=== PATIENT | female | born 1980 | race Caucasian/White ===

== ENCOUNTER 2017-03-17 04:55 | Inpatient (IN) ==
[2017-03-17] MEDS ORDERED: miSOPROStol 100 MCG TABLET PO STA (05:59)
[2017-03-17 06:09] LABS: Basophils % 0.3 %; Eosinophils # 0.1 K/mcL (0.0-0.6); Eosinophils % 0.8 %; Hematocrit 31.9 % (35.3-44.9); Immature Granulocytes % 0.6 % (0-4); Lymphocytes % 21.5 %; Mean Corpuscular HGB Conc 31.3 g/dL (31.6-35.5); Mean Corpuscular Hemoglobin 25.9 pg (28.0-33.3); Mean Corpuscular Volume 82.6 fL (83.0-100.0); Mean Platelet Volume 10.4 fL (9.4-12.4); Monocytes # 0.6 K/mcL (0.0-1.3); Monocytes % 6.6 %; Neutrophils # 6.5 K/mcL (1.6-8.9); Platelet Count 323 K/mcL (140-400); Red Blood Count 3.86 M/mcL (3.82-4.97); Segmented Neutrophils % 70.2 %
[2017-03-17 06:15] LABS: Alanine Aminotransferase 13 Units/L (0-55); Aspartate Amino Transferase 12 Units/L (5-34); BUN/Creatinine Ratio 17 (6-26); Blood Urea Nitrogen 9 mg/dL (7-20); Lactate Dehydrogenase 198 Units/L (159-327); Uric Acid 3.2 mg/dL (2.6-6.0); eGFR For African Americans > 60 (> 60); eGFR For Non-African Americans > 60 (> 60)
--- NOTE | 2017-03-17 07:06 | OB/GYN History & Physical ---
Date of Encounter: 03/17/17 Time of Encounter: 06:48 Assessment and Plan (1) 39 weeks gestation of Current visit: Yes Status: Acute (2) Polyhydramnios affecting in third trimester Current visit: Yes Status: Acute Patient will be admitted for induction of labor. - IV fluids. - Cytotec. - Epidural consult. - Nubain. History of Present Illness Chief complaint: Induction of labor HPI: Ms. Harris is a 37 year old female at 39 0/7 weeks gestation with complicated by polyhydramnios (DAMI 24.3), obesity, AMA status, and late care that presents for induction of labor. She admits to good movement. She denies any vaginal fluid leakage or bleeding. She denies contractions, headaches, vision changes, chest pain, fever, chills, nausea, vomiting, dysuria, or diarrhea. GBS: negative HepBSAg: non-reactive (12/01/16) Rubella Ab: positive Varicella Ab: positive Blood Type: A+ HIV Ag/Ab: non-reactive T. Pallidum Ab: negative All other labs normal Past Med Surg Social Fam HX - Past Medical History Medical history: other Psychiatric history: no psych history - Past Surgical History Surgical History: no surgical history - Social History Smoking Status: Never smoker Alcohol use: none Drug use: none - Family History Father Living Status: Cause of : cancer Obstetrical History - Pregnancies : 3 Para: 2 Term: 2 : 0 Ab's: 0 Livin Medications and Allergies Ferrous Sulfate 324 mg PO 03/17/17 [History] Vit Calc,Iron,Folic [ Vitamins] 1 each PO 03/17/17 [History] 3 Allergy/AdvReac Type Severity Reaction Status Date / Time ketorolac [From Toradol] AdvReac Mild Agitated Verified 03/17/17 05:44 Exam - Vital Signs Vital signs: Initial Vital Signs Temp Pulse Resp BP 98.6 F 107 18 123/72 03/17/17 06:08 03/17/17 06:08 03/17/17 06:08 03/17/17 06:08 - Constitutional Constitutional: well developed, well nourished, no acute distress - Lungs Respiratory exam: CTAB - Cardiovascular Cardiovascular exam: RRR, +S1, +S2 - Abdomen Abdomen: Present: bowel sounds normal, gravid, non tender - Extremities Extremities exam: normal inspection, radial pulses palpable and symmetrical Deep Tendon Reflex Grade: 2+ Normal - Cervix Dilation: 0 (per nurse) - Comments Comments: Pedal pulses intact and symmetrical bilaterally. Results Result Diagrams: 03/17/17 05:34 03/17/17 05:34 Abnormal lab results Hgb 10.0 g/dL (11.5-15.4) L 03/17/17 05:34 Hct 31.9 % (35.3-44.9) L 03/17/17 05:34 MCV 82.6 fL (83.0-100.0) L 03/17/17 05:34 MCH 25.9 pg (28.0-33.3) L 03/17/17 05:34 MCHC 31.3 g/dL (31.6-35.5) L 03/17/17 05:34 RDW 15.0 % (11.5-14.5) H 03/17/17 05:34 Creatinine 0.54 mg/dL (0.57-1.11) L 03/17/17 05:34 All other labs normal.
[2017-03-17] MEDS ORDERED: Naloxone 0.4 MG/ML INJ IVP PRN (07:49)
[2017-03-17] MEDS ORDERED: Metoclopramide 10 MG/2 ML VIAL IVP PRN (07:49)
[2017-03-17] MEDS ORDERED: Ondansetron 4 MG/2 ML VIAL IVP PRN (07:49)
[2017-03-17] MEDS ORDERED: Famotidine 20 MG/2 ML VIAL IVP PRN (07:49)
[2017-03-17 09:29] LABS: Amphetamine Screen,Urine Negative ng/mL (Cutoff=1000); Barbiturate Screen,Urine Negative ng/mL (Cutoff=200); Benzodiazepines Screen,Urine Negative ng/mL (Cutoff=200); Cannabinoid Screen,Urine Negative ng/mL (Cutoff = 50); Cocaine Screen,Urine Negative ng/mL (Cutoff= 300); Opiate Screen,Urine Negative ng/mL (Cutoff=300); Phencyclidine Screen,Urine Negative ng/mL (Cutoff=25)
--- NOTE | 2017-03-17 10:40 | OB Labor Progress Note ---
Date of Encounter: 03/17/17 Time of Encounter: 10:38 Labor Progress Note - Subjective Subjective: Patient resting between contractions. Currently rates them a 7 of 10. Patient plans an epidural for pain management. - Cervix Cervix: 1/60/-2 - Heart Tones Heart Tones: 140 bpm, moderate variability, + 15x15 accels, no decels. Category I tracing. - Almira Almira: q 2-3 minutes. - Interventions Interventions: SVE Meza balloon placed and filled 30 mL of Sterile Water. Patient tolerated well. - Plan Plan: Continue labor management Pt encouraged to be out of bed and on birthing ball.
[2017-03-17] MEDS ORDERED: Oxytocin 20 units/ LR 1000 mL 20 UNIT/1,000 ML BAG IVC SCH ×2 (11:30→23:07)
[2017-03-17] MEDS: Ringers Solution, Lactated 1,000 ML IVC SCH ×2 (11:45→13:12)
[2017-03-17] MEDS ORDERED: Epidural Premix (fent/bupiv) 110 ML EP SCH (12:15)
--- NOTE | 2017-03-17 12:43 | Anesthesia Evaluation PreOp ---
Date of Encounter: 03/17/17 Time of Encounter: 12:41 - Past History Planned Operation: QUAN Cardiac History: Denies any Significant Hx Pulmonary History: Denies Any Significant HX SERVICE EMPLOYEE History: Denies Any Significant HX Other Medical History: Denies Any Significant HX Anesthesia History: No Prior Anesthetic Complications Alcohol Use: none Drug use: none Medications and Allergies Ferrous Sulfate 324 mg PO 03/17/17 [History] Vit Calc,Iron,Folic [ Vitamins] 1 each PO 03/17/17 [History] 3 Allergy/AdvReac Type Severity Reaction Status Date / Time ketorolac [From Toradol] AdvReac Mild Agitated Verified 03/17/17 05:44 - Meds/Allergy Pre-op Review Medications Reviewed: Yes Allergies Reviewed: Yes Beta Blockers on Current Med List: No Anesthesia Results - Labs 03/17/17 05:34 03/17/17 05:34 Anesthesia Exam Height: 1.65m Weight: 113kg NPO (# of Hours): 4 Pain Scale: 8 Pain Scale Used: Numeric (1 - 10) - HEENT Pupil (Motor): Pupils equal Mallampati: II Teeth: Normal Oral Opening: Greater than 3 - SERVICE EMPLOYEE LOC: Oriented SERVICE EMPLOYEE Motor: Normal RUE, Normal LUE, Normal RLE, Normal LLE, Normal Face SERVICE EMPLOYEE Sensory: Normal: RUE, LUE, RLE, LLE, Face - Cardiac Rhythm: Regular Murmur: None JVD: No Carotid Bruit: No - Pulmonary Breath Sounds: bilateral Clear Respiratory Effort: Symmetrical Anesthesia Assess/Plan ASA Score: 3 (BMI 41.5) Modified [place] Scale for Level of Consciousness: Cooperative, oriented, and tranquil Anesthetic Plan: General (plan b), Regional (plan a) Autologous Blood: Yes Monitoring Plan: Standard Monitors
--- NOTE | 2017-03-17 12:45 | Anesthesia Procedures ---
Date of Encounter: 03/17/17 Time of Encounter: 12:43 Procedures: Anesthesia - Epidural/Spinal Patient ID/Chart reviewed: Yes Patient examined: Yes OB Eval: Gestational age: 39 OB Eval: : 3 OB Eval: Hx Para: 2 OB Eval: Dilated at (cm): 4 OB Eval: Contractions: Non-stressed pattern Consent Obtained: Yes Supplemental Oxygen: None/Room Air Site Prep: Aseptic Technique, Sterile prep and drape, Povidone-Iodine 1% Patient position: upright Local Anesthetic: Lidocaine 1% Amount of Local Anesthetic used: 3 Touhy Needle Gauge: 18 Touhy Needle Depth (cm): 8 Catheter Depth at Skin (cm): 20 Test Dose (1.5% Lido + Epi): Volume given (mls): 5 Test Dose Result: Negative Loading Dose: Other: 10mls of epidural pharm bag premix solution Loading Dose Administered: Thru Catheter Infusion Med: 0.125% Bupivacaine w/ 2 mcg/ml Fentanyl Infusion Rate (mls/hr): 15 ([id number]) Catheter Secured in Place: Tegaderm, Tape Interspace Used: L3-L4 Loss of Resistance (HELENA): Yes Blood: No CSF: No Paresthesia: No Procedure: pt tolerated procedure well. no complications. vss. fhr stable. see qs for complete vitals. 112/61 hr 110 134/67 hr 96 130/71 hr 106 fhr 150 fhr 137
[2017-03-17] MEDS ORDERED: Epidural Premix (fent/bupiv) 110 ML EP ONE ×2 (12:47→17:42)
--- NOTE | 2017-03-17 16:41 | OB Labor Progress Note ---
Date of Encounter: 03/17/17 Time of Encounter: 16:39 Labor Progress Note - Subjective Subjective: Pt comfortable with epidural. - Cervix Cervix: 5-6/90/-1 - Heart Tones Heart Tones: Category II - Interventions Interventions: Pt repositioned. SVE with inadvertent ROM. IUPC and FSE placed. Large amount clear fluid noted. - Plan Plan: COntinue to monitor. Anticipate .
--- NOTE | 2017-03-17 20:42 | OB Labor Progress Note ---
Date of Encounter: 03/17/17 Time of Encounter: 20:39 Labor Progress Note - Subjective Subjective: Pt resting comfortably in bed without complaint. Epidural effective for pain control. - Cervix Cervix: 7/90/-1 - Heart Tones Heart Tones: 140 bpm, moderate variability, occasional late and variable decelerations that resolve with intrauterine resuscitation. Prolonged acceleration that resolved with position change, IV fluid bolus and discontinuation of Pitocin. - [place]: q 3-5 min - Interventions Interventions: SVE Pitocin currently off due to prolonged deceleration. O2 in place by non-rebreather mask Position changes IV fluid bolus Scalp stim with positive response. - Plan Plan: Continue labor management with close FHR monitoring
--- NOTE | 2017-03-17 22:30 | OB/GYN Procedure Note ---
Delivery - Delivery Date: 03/17/17 Provider: Melisa Morales (Nate Thakkar RN) Intrapartum events: polyhydramnios Delivery induction: AROM, oxytocin, putnam, misoprostol Delivery monitor: internal FHT, internal uterine Anesthesia: epidural Estimated Blood Loss: 50 - Infant (s) A Delivery Date: 03/17/17 Delivery Time: 22:12 Presentation: vertex Position: YOLANDA Route of delivery: Gender: Male Viability: Viable Pounds: 7 Ounces: 1 Weight Gram: 3210 kg at 1 minute: 8 at 5 mins: 9 Shoulder Dystocia: not encountered Specimens collected: cord blood Placenta: spontaneous Cord: nuchal cord, 3 umbilical vessels, delivered through nuchal - Repair Episiotomy: none Laceration Description: None - Complications Delivery complications: none Delivery comments: Under maternal effort, spontaneous vaginal delivery of viable male infant over intact perineum. Tight nuchal cord noted after delivery of head, delivered through nuchal cord. [place] to maternal abdomen, cord clamped and cut after pulsation ceased. Spontaneous delivery of intact placenta. EBL 50 ml. No meconium or shoulder dystocia encountered. Perineum inspected, no repair needed. Male infant "Jasson" 7#1oz, apgars 8 & 9. Mother and stable in kangaroo care for 2 hour recovery. - Disposition Mom disposition: stable in LDR [place] disposition: stable in LDR
[2017-03-17] MEDS ORDERED: Lanolin 7 G OINT...G. TP PRN (23:07)
[2017-03-17] MEDS ORDERED: Acetaminophen 325 MG TABLET PO PRN (23:07)
[2017-03-17] MEDS ORDERED: Benzocaine/Menthol 56 GM AEROSOL SPRAY TP PRN (23:07)
[2017-03-17] MEDS ORDERED: Ibuprofen 600 MG TABLET PO PRN (23:07)
--- NOTE | 2017-03-18 07:09 | OB/GYN Progress Note ---
Date of Encounter: 03/18/17 Time of Encounter: 07:00 - Assessment and Plan (1) Status post vaginal delivery Current Visit: Yes Status: Acute Pain well controlled. Patient is meeting milestones. - Continue current pain meds. - Continue colace. (2) 39 weeks gestation of Current Visit: Yes Status: Acute (3) anemia Current Visit: Yes Status: Acute Hgb level stable at 10. - Continue iron supplements. Subjective - Subjective Principal diagnosis: S/P Vaginal delivery Interval history: Patient is doing well and in good mood. The baby is doing well and is being bottle-fed. She has been able to ambulate well. No bowel movement yet, but she has been able to pas gas and void. She admits to minor abdominal cramping and moderate vaginal bleeding. She denies any DEVLIN, vision changes, chest pain, SOB, fever, chills, nausea, or vomiting. Patient seen and assessed by VALENCIA Emery. Agree with assessment and plan. Patient denies any questions or concerns. Patient reports: appetite normal, voiding normally, pain well controlled, ambulating normally [place]: doing well, bottle feeding Objective - Latest Vital Signs Latest vital signs: Vital Signs Temp Pulse Resp BP Pulse Ox 03/18/17 03:00 98.0 F 105 16 118/74 97 03/18/17 02:20 97.8 F 109 18 115/78 97 03/18/17 01:55 97.9 F 107 14 123/76 96 03/18/17 01:00 97.9 F 106 20 129/79 Intake and Output 03/17/17 03/17/17 03/18/17 15:59 23:59 07:59 Intake Total 1000 / 1000 Output Total 300 / 300 1250 / 1250 800 / 800 Balance 700 / 700 -1250 / -1250 -800 / -800 Intake: IV Fluids 1000 / 1000 Lactated Ringers 1,000 ML @ 125 1000 / 1000 mls/hr IVC .Q8H ANABELL Rx#: [id number] Output: Urine 300 / 300 800 / 800 Estimated Blood Loss 50 / 50 Catheter 1200 / 1200 Other: # Voids 1 Weight 110.042 kg Patient Weight 03/18/17 23:59 Weight 110.042 kg - Exam Lungs: bilateral: normal Chest: Normal S1, Normal S2 Extremities: Present: normal. Absent: tenderness, edema Abdomen: Present: normal appearance, soft, tenderness Uterus: Present: firm - Labs Labs: Laboratory Results - last 24 hr 03/17/17 06:25 Urine Opiates Screen Negative Ur Barbiturates Screen Negative Ur Phencyclidine Scrn Negative Ur Amphetamines Screen Negative U Benzodiazepines Scrn Negative Urine Cocaine Screen Negative U Marijuana (THC) Screen Negative
[2017-03-18] MEDS: Prenatal Vit/FA 1 EACH TABLET PO SCH (08:02)
[2017-03-19 08:45] VITALS: BP 139/82
[2017-03-19] MEDS: Prenatal Vit/FA 1 EACH TABLET PO SCH (08:53)
--- NOTE | 2017-03-19 10:36 | Discharge Summary ---
Date of Encounter: 03/19/17 Time of Encounter: 10:35 - Discharge Diagnosis (1) Status post vaginal delivery Priority: Primary Status: Acute Comments: Doing well, will D/C home. Pt is bottle feeding and declines any medications. - Discharge Medications Home Medications: Ferrous Sulfate 324 mg PO 03/17/17 [History] Vit Calc,Iron,Folic [ Vitamins] 1 each PO 03/17/17 [History] Allergies/Adverse Reactions: 3 Allergy/AdvReac Type Severity Reaction Status Date / Time ketorolac [From Toradol] AdvReac Mild Agitated Verified 03/17/17 05:44 Data Procedures and tests throughout hospitalization: Laboratory Tests 03/17/17 03/17/17 03/17/17 05:34 05:34 06:25 WBC 9.2 RBC 3.86 Hgb 10.0 L Hct 31.9 L MCV 82.6 L MCH 25.9 L MCHC 31.3 L RDW 15.0 H Plt Count 323 MPV 10.4 Immature Gran % 0.6 Seg Neutrophils % 70.2 Lymphocytes % 21.5 Monocytes % 6.6 Eosinophils % 0.8 Basophils % 0.3 Neutrophils # 6.5 Lymphocytes # 2.0 Monocytes # 0.6 Eosinophils # 0.1 Basophils # 0.0 BUN 9 Creatinine 0.54 L Est GFR ( Amer) > 60 Est GFR (Non-Af Amer) > 60 BUN/Creatinine Ratio 17 Uric Acid 3.2 AST 12 ALT 13 Lactate Dehydrogenase 198 Urine Opiates Screen Negative Ur Barbiturates Screen Negative Ur Phencyclidine Scrn Negative Ur Amphetamines Screen Negative U Benzodiazepines Scrn Negative Urine Cocaine Screen Negative U Marijuana (THC) Screen Negative - Impressions Doing very well s/p . Approiate lochia and cramping. Date of admission: 03/17/17 04:55 Primary care physician: PCP NONE Consults: 03/17/17 23:07 Consult to Customer Service Assistant [CONS] Routine Comment: Vaginal delivery, consult needed - Patient Status Disposition: Home, Self-Care Condition: Good Functional capacity at discharge: independent ambulation Overall status at discharge: patient is back to baseline - Discharge Instructions - Diet and Activity Activity: increase activity as tolerated Diet: advance to your usual diet Hospital Course LIFE ENRICHMENT MANAGER Time Attestation: Total time spent providing and/or coordinating discharge services: Exam - Constitutional Vitals: Temp Pulse Resp BP Pulse Ox 97.7 F 91 20 139/82 96 03/19/17 08:43 03/19/17 08:43 03/19/17 08:43 03/19/17 08:43 03/19/17 08:43 General appearance IM: A&O X 3 - Respiratory Respiratory exam: Present: CTAB - Cardiovascular Cardiovascular exam IM: Present: RRR - GI/Abdominal GI/Abdominal exam IM: normal bowel sounds - Uterus Position: 2 Fingers Below Umbilicus - Extremities Exam Extremities exam IM: Present: full ROM - Neurological Exam Neurological exam: oriented X3 - VTE Reasons for not Prescribing Prophylaxis: Treatment not Indicated - Low risk for VTE
== END 2017-03-19 13:00 | disposition home or self-care (01) | DRG 560 ==
LOC: 1NENULAB 04:55 → 1NENUOBS 03-18 01:09
PROVIDERS: ADMIT Obstetrics & Gynecology; ATTEND Obstetrics & Gynecology